=== PATIENT | female | born 1965 | race Caucasian/White ===

== ENCOUNTER → 2023-01-01 11:40 | Outpatient (CLI) | payer BC, SELFPAY ==
[2023-01-01 12:31] LABS: Appearance Urine UA CLEAR; Bilirubin Urine UA NEGATIVE (NEGATIVE); Color Urine UA YELLOW; Glucose Urine UA NEGATIVE (Negative); Ketones Urine UA NEGATIVE (NEGATIVE); Leukocyte Esterase Urine UA NEGATIVE (NEGATIVE); Nitrite Urine UA NEGATIVE (Negative); Occult Blood Urine UA NEGATIVE (Negative); Protein Urine UA NEGATIVE (Negative); Specific Gravity Urine UA <=1.005 (1.000-1.035); Urobilinogen Urine UA 0.2 E.U./dL (0.2)
[2023-01-01 12:33] LABS: Add Manual Diff / Slide Review NO; Basophils Absolute Auto 100 /uL (0-100); Basophils Percent Auto 1.3 % (0-2); Eosinophils Absolute Auto 100 /uL (0-450); Eosinophils Percent Auto 2.3 % (2-4); Hemoglobin 13.6 g/dL (12.0-16.0); Lymphocytes Absolute Auto 1700 /uL (1100-4500); Lymphocytes Percent Auto 29.5 % (25-40); Mean Corpuscular Hemoglobin 30.2 PG (26-34); Mean Corpuscular Volume 88.9 fL (80-100); Monocytes Absolute Auto 400 /uL (0-900); Monocytes Percent Auto 6.8 % (3-14); Neutrophils Absolute Auto 3400 /uL (1500-7000); Neutrophils Percent Auto 60.1 % (50-75); Platelet Count 268 X10^3/uL (150-400); Red Cell Distribution Width 12.8 % (11.6-14.8); White Blood Cell Count 5.7 X10^3/uL (4.5-11.0)
[2023-01-01 12:39] LABS: Bacteria Urine None Seen; Culture Indicated Urine Cult Not Indicated; RBC Urine None Seen (0-5/HPF); Squamous Epithelial Cell Urine 0-1 /HPF (0-5/HPF); WBC Urine 0-1/HPF (0-5/HPF)
[2023-01-01 12:43] LABS: Hemoglobin A1C% w Est Avg Glu 5.5 % (4.0-6.0)
[2023-01-01 12:57] LABS: BUN Creatinine Ratio 21.2 (6-22); Blood Urea Nitrogen 11 mg/dL (7-17); Calcium 8.5 mg/dL (8.4-10.2); Carbon Dioxide 31 mmol/L (22-32); Chloride 104 mmol/L (98-107); Estimated Glomerular Filt Rate > 60 mL/min (>60); Glucose 65 mg/dL (70-100); HEMOLYSIS < 15 (0-50); Potassium 3.5 mmol/L (3.4-5.1); Sodium 139 mmol/L (137-145)
== END ==
PROVIDERS: PCP Nurse Practitioner; Referring Provider Orthopaedic Surgery; Visit Provider Orthopaedic Surgery
DX: Z01.818 Encounter for other preprocedural examination (principal); Z01.812 Encounter for preprocedural laboratory examination; R73.9 Hyperglycemia, unspecified; N39.0 Urinary tract infection, site not specified
CPT/HCPCS: 36415; 80048; 81001; 83036; 85025; 93005

== ENCOUNTER 2023-06-09 06:34 | Day surgery (SDC) | payer BC, SELFPAY ==
[2023-05-26 08:05] VITALS: BMI 23.6
[2023-06-09] VITALS (11 sets, daily range): BP systolic 76–135; BP diastolic 46–90; PULSE 74–97; RESP 12–20; TEMP 36.2–36.8; O2SAT 96–99; BMI 23.6
--- NOTE | 2023-06-09 06:00 | DI.RAD.S_ITS ---
PROCEDURE: XR HIP W PEL IF DONE RT 2V INDICATIONS: INNER OP TECHNIQUE: 4 views of the hip were acquired. COMPARISON: None. FINDINGS: Bones: Intraoperative images of right hip arthroplasty. Prosthesis is in expected location. IMPRESSION: Intraoperative images of right hip arthroplasty. Please see intraoperative report for full details. Dictated by: Rosangela Reed M.D. on 06/09/2023 at 17:59 Approved by: Rosangela Reed M.D. on 06/09/2023 at 17:59
[2023-06-09] MEDS: CELECOXIB 200 MG CAPSULE PO (06:46)
[2023-06-09] MEDS: VANCOMYCIN 1,000 MG/200 ML PIGGYBACK 200 MG IV (06:46)
[2023-06-09] MEDS: ACETAMINOPHEN 325 MG TABLET 975 MG PO (06:46)
[2023-06-09] MEDS: LACTATED RINGERS 1,000 ML 42 ML IV ×2 (06:47→09:10)
[2023-06-09] MEDS: PREGABALIN 75 MG CAPSULE PO (06:47)
--- NOTE | 2023-06-09 07:43 | PM.PREOP ---
Pre-operative Note Interval Note History & Physical reviewed/Exam performed by Physician: Yes Changes to H&P: No
--- NOTE | 2023-06-09 07:44 | P.OP_ITS ---
Operative Date/Time/Diagnoses Date of procedure: 06/09/23 Time of procedure: 08:00 Pre-op diagnosis: right hip OA Post-op diagnosis: same Procedure & Clinicians Procedure: Right total hip arthroplasty anterior approach Same procedure as scheduled: Yes Indications: The patient has had progressively worsening right hip pain with radiographic c hanges consistent with arthritis. Non-operative management has failed and the patient has requested total hip replacement. The risks, benefits and alternatives to surgery were discussed with the patient prior to proceeding. Risks discussed included, but were not limited to, failure to relieve pain, leg length discrepancy, dislocation, stiffness, infection, nerve damage, deep venous thrombosis, pulmonary embolism, stroke, coma, heart attack, permanent paralysis and , as well as the potential need for eventual revision of the prosthetic. Surgeon: Miriam Anders Email Campaign Specialist: Miracle Kyle Anesthesia Type: Spinal Operative Notes Findings: Severe right hip OA, adequate stability Closure Type: primary Specimen(s): none sent Prosthetic devices, grafts, tissues, transplants, or devices: Anders and nephew polar stem size 1 with collar, R3 48, neutral poly liner,one 6.5 mm screw, 32 by -3 oxinium Estimated Blood Loss (mL): 250 Blood products transfused: none Procedure in detail: The patient was brought to the operating room. Patient was carefully positioned in the supine position. Time-out was performed and antibiotics were given. Anesthesia was induced. She was positioned in the on the table in order to allow hyperextension of the hip. The right lower extremity was prepped and draped in a standard sterile fashion. An anterior right hip incision was made 1 fingerbreadth lateral to the anterior superior iliac spine and extended distally towards the greater trochanter. Dissection was carried out through skin and subcutaneous tissues. Superficial hemostasis was achieved. The fascia over the tensor fascia soy was defined and incised with a knife. Two Allis clamps were used to grasp the fascia. Tensor fascia soy was retracted laterally. A gelpi retractor was placed. Dissection was carried out down along the neck. The circumflex vessels were carefully identified and cauterized with the Aqua Mantis. A PA was used throughout the procedure and was essential for retraction and safe implantation of the components as well as assisting with establishing adequate hemostasis. There was good visualization of the femoral neck. A Cobra was placed superior to the neck and the gluteus fibers were carefully stripped from that superior aspect of the capsule. A 2nd retractor was placed along the inferior aspect of the neck. The rectus insertion along the capsule was partially released. A 3rd retractor that was then gently placed over the rim of the acetabulum under the rectus. Capsule was carefully incised and released from the intertrochanteric line circumferentially superior to the mid sagittal line and inferiorly to the mid sagittal line until the lesser trochanter was palpable. A tag stitch was placed both in the superior and inferior limb of the capsular insertion. Along the acetabulum capsule was also released up to the mid sagittal 12:00 position. A portion of the labrum was resected. A saw was used to perform an osteotomy at the level of the intertrochanteric line and the junction of the superior femoral neck leaving approximately 1 finger breath of residual inferior neck above the lesser trochanter. A 2nd cut was made along the femoral neck at the base of the head and a napkin ring of neck was removed. Corkscrew was placed in the femoral head and the head was removed without difficulty. Retractors were then repositioned around the acetabulum. Residual labrum was resected and additional osteophytes were r emoved. A reamer that was 4 mm below the templated size was placed by hand in the acetabulum and it was reamed to centralize the acetabulum. It was then reamed up to 2 under the templated size and fluoroscopy was brought in to confirm the position of the reaming and depth of reaming. I reamed 1 under the anticipated size. A trial cup was placed and noted that it was appropriately sized and fluoroscopy confirmed position and depth. The component was open and inserted without difficulty fluoroscopic imaging was used to confirm that the cup had been adequately seated and was well positioned. It was further stabilized with a single screw. Neutral poly liner was placed. The cup was tested and noted to be stable. Attention was then directed to the femur. The femur was gently hyperextended a dditional capsular release was performed as needed in order to allow adequate visualization of the proximal femur with elevation of the femur. Patient was placed in a hyperextended slightly adducted position with maximum external rotation. Box osteotome was used to check for any residual neck as well as sclerotic bone along the trochanter. Thompson pepper was placed in the femur. Additional broaching was performed. Canal finder was used to determine the alignment of the canal and position. Size 1 broach was placed. The canal was then appropriately broached up to the templated size as long as there was adequate stability of the broach and serial advancement of the broach without excessive impingement. Specific attention was directed at avoiding varus attempting to direct the distal aspect of the broach more anteriorly and avoiding excessive anteversion. Trial reduction showed acceptable range of motion, good stability, no posterior impingement, jehovah's witness of leg length and appropriate lateral shuck. I also hyperflexed the hip and checked that there was no impingement anteriorly and there was good stability with flexion, adduction and internal rotation. Marcaine and Exparel were injected. The stem was placed without difficulty. Repeat trial reduction and x-ray showed acceptable overall position, length, and no evidence of the femoral fracture. Final head was placed. Wound was meticulously irrigated with normal saline. The hip was reduced and additional Exparel and Marcaine were injected. The capsule was closed with interrupted nonabsorbable sutures. The fascia of the tensor was closed with interrupted and running Vicryl. No drain was placed. Any tensor fascia soy muscle that appeared to be contused or injured which was a minimal amount was carefully resected. Capsule around the tensor was injected with Exparel and Marcaine. The skin was closed with barbed stitches for the subcutaneous tissue and skin. We also used surgical glue. The wound was dressed sterilely. Brief Betadine soak was also used and was meticulously irrigated with normal saline. Patient was transferred to recovery room in satisfactory condition. Complications: none Post-operative Condition: stable Disposition: same day surgery Plan for aftercare: The patient will be maintained on a standard total hip replacement protocol with weight bearing as tolerated and posterior hip precautions. The patient will receive Aspirin and sequential compression devices for DVT prophylaxis. The patient will be discharged home when safe for the home environment.
[2023-06-09] MEDS: CEFAZOLIN 2 GM/100 ML PREMIX 100 ML IV (07:51)
[2023-06-09] MEDS: TRANEXAMIC ACID 1,000 MG VIAL 2000 MG INJ ×2 (08:17→09:55)
--- NOTE | 2023-06-09 08:22 | SUR.OPER ---
Supine on padded [place] table with bilateral legs secured in padded positioning boots and suspended in positioning spars, operative leg in traction per surgeon. Head on one pillow. Arm on non-operative side secured on padded armboard <90 degrees abduction. Arm on operative side padded and resting across chest then secured with tape over sheet. Padded perineal post in place per surgeon.
[2023-06-09] MEDS: BUPIVACAINE 0.25% (PF) 60 ML, EPINEPHrine 0.3 MG INJ (09:00)
[2023-06-09] MEDS: BUPIVACAINE LIPOSOME 266 MG/20 ML VIAL INJ (09:03)
--- NOTE | 2023-06-09 10:30 | DI.RAD.S_ITS ---
PROCEDURE: XR HIP W PEL IF DONE RT 2V INDICATIONS: TOTAL RIGHT HIP post op TECHNIQUE: 2 view(s) of the hip acquired. COMPARISON: [facility], [place], XR HIP W PEL IF DONE RT 2V, 06/09/2023, 9:05. FINDINGS: Bones: Patient is status post right hip arthroplasty, with hardware components in expected positions. The hip joint appears congruent. The visualized bony structures appear intact. Soft tissues: Overlying postoperative changes are noted. No suspicious soft tissue densities. IMPRESSION: Status post right total hip arthroplasty without evidence for acute hardware complication. Dictated by: Felix Jaquez M.D. on 06/09/2023 at 11:01 Approved by: Felix Jaquez M.D. on 06/09/2023 at 11:02
[2023-06-09] MEDS: ACETAMINOPHEN 325 MG TABLET 650 MG PO ×2 (11:32→17:55)
[2023-06-09] MEDS: IBUPROFEN 400 MG TABLET PO ×2 (11:34→15:53)
[2023-06-09] MEDS: LACTATED RINGERS 1,000 ML 100 ML IV (11:36)
--- NOTE | 2023-06-09 12:21 | PT.IIE ---
Addendum entered and electronically signed by She Stratton, PT 06/09/23 16:51: sent to physician for signature on plan of care Original Note: Current Diagnoses Unilateral primary osteoarthritis, right hip (06/09/23) Surgery Performed Operation Date: 06/09/23 07:45 Actual Procedures p Total Hip Arthroplasty/Anterior Approach(Right) - Miriam Anders MD Surgical History (Last Updated 03/02/23 @ 13:19 by Florencia Grimes RN) History of History of gynecologic surgery History of lumpectomy of right breast (10/2021) History of removal of Port-a-Cath (11/2022) Medical History (Last Updated 05/26/23 @ 08:07 by Florencia Grimes RN) Anxiety Asthma Breast cancer, right (10/2021) Depression Dry eye History of COVID-19 (03/15/23) RLS (restless legs syndrome) TMJ click Physical Therapy Inpatient Evaluation/Re-Eval M1 PT/OT-IP Prior Functional Status Start: 06/09/23 12:21 Freq: NEEDED Status: Active Protocol: Document 06/09/23 12:21 DLM (Rec: 06/09/23 12:39 DL [id number]) Medical Review Prior Functional Status Medical History Reviewed Yes Diet/Fluid Consistency Regular Communication WNL, glasses Mobility and Gait Independent without device Activities of Daily Living and IADL's Independent, active Prior Functional Level (Other details) was riding electric bike before surgery Social History Household Members spouse,children Living Arrangements House Number of Floors (Floors) Two Floors Number of Stairs To Enter/Railing? 1-2 steps to enter from side door, no rail Home Environment Standard Height Toilet,Tub/ Shower Home Equipment Front Wheel Walker,Straight Cane,Hand Held Shower Additional Social History Comment She can stay on main floor of house, plans to sleep on couch , bathroom on main level. She works from home on computer. Her Daughter and Spouse live with her and also solidworks designer. 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 She reports increase right hip area pain after getting up to the bedside commode. Patient Goals Discharge home with help from Spouse and Daughter Therapy Pain Assessment Pain When Pain Assessed After Treatment Pain Present Pain Present Pain Reported Location Right Hip Intensity 7 Scale Used Numeric (0 - 10) Description Aching,Pressure,Radiating, Tightness Pain Behaviors Facial Grimacing Pain Management Techniques Apply Cold,Re-positioning M4 PT-IP Mobility and Gait Start: 06/09/23 12:21 Freq: NEEDED Status: Active Protocol: Document 06/09/23 12:21 DLM (Rec: 06/09/23 12:39 [facility] [id number]) PT-Bed Mobility Assessment Supine to Sit Supine to Sit Independent Sit to Supine Sit to Supine Independent Scooting Scooting to Edge of Bed Independent Scooting Up and Down in Bed Independent PT-Transfer Assessment Sit to and From Stand Sit to and from Stand Standby Assistance,Use of Upper Extremities Equipment Transfer Assistive Device Gait Belt,Front Wheeled Walker Transfers Transfer Destination Bedside Commode Transfer Technique Stand Step Pivot Transfer Ability Level of Assist Standby Assistance,Use of Upper Extremities Comments Mobility Comments Educated pt in safe movement patterns with anterior hip precautions. No light- headedness nor nausea with getting up. Pt felt like she needed to urinate but was not able to void once on the bedside commode. She reports increased right hip pain after returning to bed. Her nurse was notified and pt was positioned for comfort with ice. Gait Assessment Gait Gait Assistance Required: Standby Assistance Distance (Feet) 2 Able to Maintain Weight Bearing Status Yes During Gait Assistive Devices Assistive Device Gait Belt,Front Wheeled Walker Gait Deviations General Gait Pattern Antalgic,Decreased Stride Length Factors Limiting Gait Function Factors Limiting Gait Function Decreased Activity Tolerance, Decreased Strength,Limited Range of Motion,Pain,Poor Balance Comments Gait Comments She demonstrates good use of UEs on the FWW to manage right LE pain. She has her FWW from home in her room. Stair Climbing Assessment Comments Stair Climbing Comments Needs to complete before discharge, pt having too much pain at this time for training PT-Balance Assessment Sitting Balance and Reactions Static Sitting Balance Ability Normal Dynamic Sitting Balance Ability Normal Standing Balance and Reactions Static Standing Balance Ability Good Dynamic Standing Balance Ability Good Device Used FWW M5 PT-IP Objective Assessments Start: 06/09/23 12:21 Freq: NEEDED Status: Active Protocol: Document 06/09/23 12:21 DLM (Rec: 06/09/23 12:39 DL [id number]) Orientation Orientation/Cognition Level of Alertness Alert Orientation Name,Age,Birthday,Month,Date, Year,Day of Week,Place, Situation Language Function Ability No Deficits Noted Safety Awareness Understands Safety Issues Memory Description No Deficits Noted Comments pt has glasses on Gross Range of Motion Upper Extremity ROM Assessment Within Functional Limits Lower Extremity ROM Assessment Right Impaired Impairments anterior hip precautions, pain right hip movements, functional for sitting and standing Strength Upper Extremity Strength Assessment Within Functional Limits Lower Extremity Strength Assessment Right Impaired Hip pain limited, moving actively post-op Knee moving actively, thigh area pain post-op Ankle moving actively with difficulty Coordination Assessment Gross Coordination Gross Coordination WNL Sensation Assessment Sensation Gross Sensation WNL Comments Sensation Comments she describes mild numb sensation in hip and pelvic area that is resolving post-op Muscle Tone Muscle Tone WNL Yes M6 PT-IP Treatment Start: 06/09/23 12:21 Freq: NEEDED Status: Active Protocol: Document 06/09/23 12:21 DLM (Rec: 06/09/23 12:39 [facility] [id number]) Physical Therapy Treatment Exercises Exercises Ankle Pumps Education Education Provided Precautions,Weight Bearing Status,Post-Op Packet,Safety M7 PT-IP Assessment and Plan Start: 06/09/23 12:21 Freq: NEEDED Status: Active Protocol: Document 06/09/23 12:21 DLM (Rec: 06/09/23 12:39 DL [id number]) PT Summary Assessment and Plan Potential Rehabilitation Potential Excellent Status of Condition at Evaluation Evolving Summary Impairments Pain,ROM,Strength,Balance,Bed Mobility,Transfers,Gait, Activity Tolerance Assessment Summary Dawn is alert and resting in bed post-op. She hopes to discharge home today. She was able to get up to the bedside commode this visit with the FWW and SBA. She was not able to void. She had a significant increase in her pain up to 7- 8/10 after activity and returned to bed to rest and manage the pain. Her nurse was notified. Pt about to have lunch. Will plan to see pt again this afternoon for gait progression, teach her HEP, hip precaution education and stair training. Pt is not safe for discharge yet today but may progress to that later this afternoon. Will continue to assess for discharge planning next visit. Goals Bed Mobility Goal Independent Transfer Goal Independent,Front Wheeled Walker Gait Goal Independent,Front Wheel Walker Gait Distance 150 feet Other Goals up/down 2 steps with CG/min assist and cane if needed Days to Meet Goals 1 Frequency of Treatment Frequency Of Treatment Twice a Day Treatment Plan Physical Therapy Treatment Plan Bed Mobility Training,Transfer Training,Gait Training, Therapeutic Exercise,Balance Retraining,Post Op Education, Discharge Planning,Hot or Cold Pack,Neuromuscular Re-ed Precautions Anterior Hip Precautions No Hip Extension,No Hip External Rotation Other Precautions pt reports hx lumpectomy on right breast with no blood pressure nor IV restrictions Weight Bearing Status Weight Bearing Status Weight Bear as Tolerated Recommendations To Nursing Amount of Assist Needed Standby Assistance Discharge Recommendations PT Discharge Recommendations Home with Assistance, Outpatient PT Other Discharge Recommendations pt has out-pt PT planned after discharge in 1-2 weeks. Transportation Needs at Discharge Private Vehicle
[2023-06-09] MEDS: OXYCODONE IR 5 MG TABLET PO (12:24)
--- NOTE | 2023-06-09 12:34 | OT.IP.EVAL ---
Current Diagnoses Unilateral primary osteoarthritis, right hip (06/09/23) Surgery Performed Operation Date: 06/09/23 07:45 Actual Procedures p Total Hip Arthroplasty/Anterior Approach(Right) - Miriam Anders MD Past Medical History (Last Updated 05/26/23 @ 08:07 by Florencia Grimes, RN) Anxiety Asthma Breast cancer, right (10/2021) Depression Dry eye History of COVID-19 (03/15/23) RLS (restless legs syndrome) TMJ click Surgical History (Last Updated 03/02/23 @ 13:19 by Florencia Grimes, RN) History of History of gynecologic surgery History of lumpectomy of right breast (10/2021) History of removal of Port-a-Cath (11/2022) Occupational Therapy Inpatient Evaluation/Re-Eval M1 PT/OT-IP Prior Functional Status Start: 06/09/23 12:21 Freq: NEEDED Status: Active Protocol: Document 06/09/23 12:21 DLM (Rec: 06/09/23 12:39 DLM [id number]) Medical Review Prior Functional Status Medical History Reviewed Yes Diet/Fluid Consistency Regular Communication WNL, glasses Mobility and Gait Independent without device Activities of Daily Living and IADL's Independent, active Prior Functional Level (Other details) was riding electric bike before surgery Social History Household Members spouse,children Living Arrangements House Number of Floors (Floors) Two Floors Number of Stairs To Enter/Railing? 1-2 steps to enter from side door, no rail Home Environment Standard Height Toilet,Tub/ Shower Home Equipment Front Wheel Walker,Straight Cane,Hand Held Shower Additional Social History Comment She can stay on main floor of house, plans to sleep on couch , bathroom on main level. She works from home on computer. Her Daughter and Spouse live with her and also inventory worker. M2 OT-IP Current Condition Start: 06/09/23 12:40 Freq: Status: Active Protocol: Document 06/09/23 11:45 CCC (Rec: 06/09/23 13:03 CCC [id number]) Occupational Therapy Current Condition Current Condition Evaluation Date 06/09/23 Treatment Diagnosis S/P R [place] anterior approach Diagnosis Onset Date 06/09/23 Post Operative Precautions Anterior Hip Precautions No Hip Extension,No Hip External Rotation M3 OT- IP Subjective and Pain Start: 06/09/23 12:40 Freq: Status: Active Protocol: Document 06/09/23 11:45 [facility] (Rec: 06/09/23 13:03 [facility] [id number]) OT- Subjective Occupational Therapy Visit Type Type Initial Evaluation Visit Start Time 11:45 Visit Stop Time 12:34 Total Visit Minutes 49 Occupational Therapy Visit Comments Patient Comments Pt agreed to get up as feeling like she needed to use the bathroom. Patient/Caregiver Goals To go home. OT Pain Assessment Pain When Pain Assessed At Rest Pain Present Pain Present Pain Reported Location Right Hip Intensity 6 Scale Used Numeric (0 - 10) M4 OT- IP ADL's Start: 06/09/23 12:40 Freq: Status: Active Protocol: Document 06/09/23 11:45 [facility] (Rec: 06/09/23 13:03 [facility] [id number]) OT LPI-Qcsj-Zfmzckd General Evaluation Self-Feeding Ability Independent OT ADL-Grooming General Evaluation Grooming Ability Independent OT ADL-Oral Care Comments Oral Care Comments Not performed. OT ADL-Dressing General Eval Lower Body Dressing Ability Standby Assistance Comments OT Dressing Comments Pt able to lean forwards to readjust her socks. Pt states to just wear her Birkenstock sandals for now. OT ADL-Toileting General Evaluation Toileting Ability Standby Assistance Comments OT Toileting Comments Pt has a low toilet, did bring up options of toilet safety frame, BSC, or just use the FWW while someone there to assist to hold the FWW in place. Otherwise use of the counter to help to stand. Suggested pt to wear pad at night so not having to hurry to the bathroom. Pt able to transfer to the toilet with SBA with use of the FWW. OT ADL-Bathing Comments OT Bathing Comments Suggested pt get a shower chair and non slip mat and assist. M5 OT- IP IADL's Start: 06/09/23 12:40 Freq: Status: Active Protocol: Document 06/09/23 11:45 [facility] (Rec: 06/09/23 13:03 [facility] [id number]) OT-Instrumental Activities of Daily Living Deficits IADL Deficits Identified Deficits Home Safety Awareness Awareness of Need for Assistance at Home Good Awareness Ability to Problem Solve Emergency Able to Problem Solve Situations Home Safety Comments Pt has supportive daughter and spouse to assist. M6 OT- IP Functional Cognition Start: 06/09/23 12:40 Freq: Status: Active Protocol: Document 06/09/23 11:45 [facility] (Rec: 06/09/23 13:03 [facility] [id number]) Cognitive Factors Limiting Selfcare Function Cognitive Ability Level of Alertness Alert Patient Orientation Name,Age,Birthday,Month,Date, Year,Day of Week,Place, Situation Attention Span Ability Capable of Focused Attention, Capable of Sustained Attention Ability to Follow Commands Able to Follow One Step Commands Cognitive Comments Cognitive Assessment Comments Pt able to follow commands for ADl and mobility needs. Pt still needing reminders of her hip precautions during mobility needs of which leg steps first when going forwards or backwards. OT- Vision and Hearing OT- Hearing Assessment OT- Hearing Assessment WFL OT- Vision Assessment Visual Acuity Glasses All The Time M7 OT- IP Mobility and Balance Start: 06/09/23 12:40 Freq: Status: Active Protocol: Document 06/09/23 11:45 [facility] (Rec: 06/09/23 13:03 [facility] [id number]) OT- Bed Mobility Assessment Supine to Sit Supine to Sit Assist Independent Sit to Supine Sit to Supine Assist Independent Scooting Scooting to Edge of Bed Independent OT-Transfer Assessment Sit to and From Stand Sit to and from Stand Standby Assistance Transfers Transfer Ability Standby Assistance Technique Transfer Destination Bed,Bedside Commode Devices Transfer Assistive Devices Gait Belt,Front Wheeled Walker Comments Mobility Comments Wheels on pt's front wheel walker turned outward for increased stability. Pt SBA with FWW. OT- Balance Assessment Sitting Balance and Reactions Static Sitting Balance Ability Normal Dynamic Sitting Balance Ability Normal Standing Balance and Reactions Static Standing Balance Ability Good Dynamic Standing Balance Ability Good M8 OT- IP Objective Assessments Start: 06/09/23 12:40 Freq: Status: Active Protocol: Document 06/09/23 11:45 [facility] (Rec: 06/09/23 13:03 [facility] [id number]) OT Gross Range of Motion Upper Extremity Range of Motion Assessment Within Functional Limits OT Strength Upper Extremity Strength Assessment Within Functional Limits OT-Muscle Tone Assessment Muscle Tone WNL Yes M9 OT- IP Assessment and Plan Start: 06/09/23 12:40 Freq: Status: Active Protocol: Document 06/09/23 11:45 [facility] (Rec: 06/09/23 13:03 [facility] [id number]) OT Summary Assessment and Plan Potential Rehabilitation Potential Excellent Analytic Complexity at Evaluation Low Summary OT Impairments Pain,Functional Mobility, Dressing,Bathing Progress Towards Goals Progressing Toward Goals Assessment Summary Pt low complexity and main barrier is pain and so far doing well. Pt looking to go home with her family when medically stable. Pt would benefit from getting a shower chair and non slip mat for her showering needs. Goals Dressing Goal Independent Toileting Goal Independent Bathing Goal Independent Toilet Transfer Goal Independent Shower Transfer Goal Independent Days to Meet Goals 2 Frequency of Treatment Frequency Of Treatment Once a Day Treatment Plan OT Treatment Plan ADL Training,Functional Mobility,Patient/Family Education,Discharge Planning Discharge Recommendations OT Discharge Recommendations Home with Assistance, Outpatient PT Home Equipment Needs shower chair, non slip mat Transportation Needs at Discharge Private Vehicle
--- NOTE | 2023-06-09 13:52 | PC.NURSE ---
Day shift: Patient arrived to the floor at 1115. Pain adequately controlled with ordered oral pain medication, dressing on right hip is dry and intact w/ no drainage, CMS positive, patient denies nausea and SOB. 1 PA w/ FWW to BSC. 1200: [facility] reported that the patient started to feel dizzy and appeared diaphoretic, BP was taken and pt was hypotensive (74/46, HR 77). Patient put in trendelenburg, coordinator and ICU float at the bedside. BG was checked (178). Patient alert and stated that this happens occasionally with pain and/or anxiety. 15 minutes later, patient stated that she was feeling better, BP (92/50). Will continue to monitor. 1300: Patient stated that she is feeling better, BP (99/60), rating pain 4/10. Bed alarm is on, locked, and call light within reach.
--- NOTE | 2023-06-09 15:55 | PT.IPTN ---
Current Diagnoses Unilateral primary osteoarthritis, right hip (06/09/23) Surgery Performed Operation Date: 06/09/23 07:45 Actual Procedures p Total Hip Arthroplasty/Anterior Approach(Right) - Miriam Anders MD Physical Therapy Treatment Note M2 PT-IP Current Condition Start: 06/09/23 12:21 Freq: NEEDED Status: Active Protocol: Document 06/09/23 12:21 DLM (Rec: 06/09/23 12:39 DLM [id number]) Physical Therapy Current Condition Current Condition Evaluation Date 06/09/23 Treatment Diagnosis right anterior [place], impaired gait Onset Date 06/09/23 M3 PT-IP Subjective Start: 06/09/23 12:21 Freq: NEEDED Status: Active Protocol: Document 06/09/23 15:55 DLM (Rec: 06/09/23 16:05 DLM [id number]) Subjective Physical Therapy Visit Type Type Treatment Note Visit Start Time 15:10 Visit Stop Time 15:54 Total Visit Minutes 44 Number of CUTTER GAS Visits 0 Physical Therapy Visit Comments Patient Comments Her pain is better now. The pain medication helped. She was able to go to the bathroom with nursing. Patient Goals Discharge home with family to assist, discharge today if possible Therapy Pain Assessment Pain When Pain Assessed After Treatment Pain Present Pain Present Pain Reported Location Right Hip Intensity 3 Scale Used Numeric (0 - 10) Description Aching,Tender Pain Behaviors Guarding Pain Management Techniques Apply Cold,Timing of Activity with Medications M4 PT-IP Mobility and Gait Start: 06/09/23 12:21 Freq: NEEDED Status: Active Protocol: Document 06/09/23 15:55 DLM (Rec: 06/09/23 16:05 DLM [id number]) PT-Bed Mobility Assessment Supine to Sit Supine to Sit Independent Sit to Supine Sit to Supine Independent Scooting Scooting to Edge of Bed Independent Scooting Up and Down in Bed Independent PT-Transfer Assessment Sit to and From Stand Sit to and from Stand Independent,Use of Upper Extremities Equipment Transfer Assistive Device Gait Belt,Front Wheeled Walker Transfers Transfer Destination Bed,Toilet Transfer Technique Stand Step Pivot Transfer Ability Level of Assist Independent,Use of Upper Extremities Comments Mobility Comments Intermittent verbal cues needed during sit-stand for safe hand placement. Vital signs seated edge of bed ; BP 134/81 and HR 94 No light-headedness, no nausea with activity Gait Assessment Gait Gait Assistance Required: Independent Distance (Feet) 100 Able to Maintain Weight Bearing Status Yes During Gait Assistive Devices Assistive Device Gait Belt,Front Wheeled Walker Gait Deviations General Gait Pattern Antalgic,Decreased Stride Length Factors Limiting Gait Function Factors Limiting Gait Function Decreased Activity Tolerance, Decreased Strength,Limited Range of Motion,Pain,Poor Balance Comments Gait Comments She demonstrates safe use of the fWW for gait. She tolerated gait well. Stair Climbing Assessment Evaluation Level of Assist On Stairs Contact Guard Assistance, Minimal Assistance,1 Person Assistance Devices Stair Climbing Assistive Devices Straight Cane Technique/Endurance Stair Climbing Direction Ascend and Descend Stair Climbing Technique Step to Step Number of Steps Climbed 1 Stair Climbing Set # Repetitions (reps) 2 Comments Stair Climbing Comments trained her Daughter in how to assist her up/down steps without hand rail verbally reviewed use of hand rail PT-Balance Assessment Sitting Balance and Reactions Static Sitting Balance Ability Normal Dynamic Sitting Balance Ability Normal Standing Balance and Reactions Static Standing Balance Ability Good Dynamic Standing Balance Ability Good Device Used FWW M5 PT-IP Objective Assessments Start: 06/09/23 12:21 Freq: NEEDED Status: Active Protocol: Document 06/09/23 12:21 DLM (Rec: 06/09/23 12:39 DL [id number]) Orientation Orientation/Cognition Level of Alertness Alert Orientation Name,Age,Birthday,Month,Date, Year,Day of Week,Place, Situation Language Function Ability No Deficits Noted Safety Awareness Understands Safety Issues Memory Description No Deficits Noted Comments pt has glasses on Gross Range of Motion Upper Extremity ROM Assessment Within Functional Limits Lower Extremity ROM Assessment Right Impaired Impairments anterior hip precautions, pain right hip movements, functional for sitting and standing Strength Upper Extremity Strength Assessment Within Functional Limits Lower Extremity Strength Assessment Right Impaired Hip pain limited, moving actively post-op Knee moving actively, thigh area pain post-op Ankle moving actively with difficulty Coordination Assessment Gross Coordination Gross Coordination WNL Sensation Assessment Sensation Gross Sensation WNL Comments Sensation Comments she describes mild numb sensation in hip and pelvic area that is resolving post-op Muscle Tone Muscle Tone WNL Yes M6 PT-IP Treatment Start: 06/09/23 12:21 Freq: NEEDED Status: Active Protocol: Document 06/09/23 15:55 DLM (Rec: 06/09/23 16:05 DL [id number]) Physical Therapy Treatment Exercises Exercises Ankle Pumps,Gluteal Sets,Quad Sets,Heel Slides Education Education Provided Precautions,Weight Bearing Status,Post-Op Packet,Safety Other Treatments Other Treatment Performed pt tolerated her exercises well Her Daughter and participated in training this visit. Her Daughter demonstrated ability to physically help her on steps that do not have a rail. Verbally educated pt and her family in how to get in/out of car. M7 PT-IP Assessment and Plan Start: 06/09/23 12:21 Freq: NEEDED Status: Active Protocol: Document 06/09/23 15:55 DLM (Rec: 06/09/23 16:05 DLM [id number]) PT Summary Assessment and Plan Summary Impairments Pain,ROM,Strength,Balance, Activity Tolerance Progress Towards Goals Safe For Discharge,Goals Met Assessment Summary Dawn is progressing well in therapy. She tolerated gait in the [place] well with the FWW. She completed her training on stairs and her home exercise program. Her family was present this visit and participated in education and training. They appear safe in helping her at home. Pt appears safe to discharge home today if cleared medically. Notified her nurse. Goals Bed Mobility Goal Independent Transfer Goal Independent,Front Wheeled Walker Gait Goal Independent,Front Wheel Walker Gait Distance 150 feet Other Goals up/down 2 steps with CG/min assist and cane if needed Days to Meet Goals 1 Frequency of Treatment Frequency Of Treatment Discharge Treatment Plan Other Recommendations and Next Treatment training completed this visit Focus Precautions Anterior Hip Precautions No Hip Extension,No Hip External Rotation Other Precautions pt reports hx lumpectomy on right breast with no blood pressure nor IV restrictions Weight Bearing Status Weight Bearing Status Weight Bear as Tolerated Recommendations To Nursing Amount of Assist Needed Standby Assistance Discharge Recommendations PT Discharge Recommendations Home with Assistance, Outpatient PT Other Discharge Recommendations pt has out-pt PT planned after discharge in 1-2 weeks. Her Daughter and are available to help her at home Transportation Needs at Discharge Private Vehicle
--- NOTE | 2023-06-09 18:09 | PC.NURSE ---
Day shift: Pt feeling well with adequate pain control and up with PT x2 this afternoon. PT has cleared for d/c. Pt wanting and ready to go home. PIV infiltrated. Notified JENY Edmond about patient ready to discharge and no IV. Mari stated ok for no IV d/t going home and ok for no IV cefazolin. MD Ezekiel Anders at bedside at 1700 to check on patient. She ok'ed d/c home this evening and wrote d/c orders. Went over discharge instructions with patient and patient's daughter. Patient stated understanding and all questions answered. All belongings with patient. Nurse Don escorted patient to exit via wheelchair where pt's daughter to drive her home.
== END 2023-06-09 18:13 | disposition home or self-care (01) ==
LOC: OR 06:36 → AC 06:36
PROVIDERS: PCP Nurse Practitioner; Referring Provider Orthopaedic Surgery; Visit Provider Orthopaedic Surgery
PROC: (CPT 27130; principal; 2023-06-09 07:45)
DX: M16.11 Unilateral primary osteoarthritis, right hip (principal); Z16.11 Resistance to penicillins
CPT/HCPCS: 27130; 73502; 76000; 97110; 97116; 97162; 97165; 97530; 97535; C1776; C9290; J0171; J0690; J1100; J2250; J2405; J2704; J3010